=== PATIENT | male | born 1955 | race Two or more races ===

== ENCOUNTER 2022-01-31 08:48 | Inpatient (IN) | payer MEDICAID, OTHER ==
[2022-01-31] MEDS ORDERED: Sodium Chloride 0.9% 2.5 ML Syringe FLUSH PRN (09:44)
[2022-01-31] MEDS ORDERED: Sodium Chloride 0.9% 10 ML Syringe FLUSH PRN (09:44)
[2022-01-31] MEDS ORDERED: Pantoprazole 80 MG in Sodium Chloride 0.9% 10 ML IVPUSH ONE (09:45)
[2022-01-31 10:43] LABS: POTASSIUM,K 3.7 mmol/L (3.5-5.1)
[2022-01-31] MEDS ORDERED: Polyethylene Glycol 3350 Powder 17 GM Packet PO PRN (14:01)
[2022-01-31] MEDS ORDERED: Acetaminophen 325 MG Tab PO PRN (14:01)
[2022-01-31] MEDS ORDERED: Ondansetron 4 MG/2 ML SDV IVPUSH PRN (14:01)
[2022-01-31] MEDS ORDERED: Albuterol/Ipratropium 3.0-0.5 MG/3 ML Neb Soln NEB PRN (14:01)
[2022-01-31] MEDS ORDERED: Enoxaparin 40 MG/0.4 ML Syringe SUBCUT SCH (14:15)
[2022-01-31] MEDS: Lisinopril 10 MG Tab PO SCH (14:38)
[2022-01-31] MEDS: Pantoprazole 40 MG in Sodium Chloride 0.9% 10 ML IVPUSH SCH ×2 (15:57→18:44)
[2022-01-31] MEDS ORDERED: Labetalol 100 MG/20 ML MDV IVPUSH ONE (20:58)
[2022-02-01 06:34] LABS: CARBON DIOXIDE,CO2 23.5 mmol/L (21.0-32.0); POTASSIUM,K 3.8 mmol/L (3.5-5.1)
[2022-02-01] MEDS: Pantoprazole 40 MG in Sodium Chloride 0.9% 10 ML IVPUSH SCH ×2 (06:42→17:42)
[2022-02-01] MEDS: Lisinopril 10 MG Tab PO SCH (09:52)
[2022-02-01] MEDS: Labetalol 100 MG/20 ML MDV IVPUSH PRN ×2 (10:43→15:07)
[2022-02-01] MEDS: amLODIPine 5 MG Tab PO SCH (11:20)
[2022-02-01] MEDS: Tamsulosin 0.4 MG Cap.ER PO SCH (14:44)
[2022-02-01] MEDS ORDERED: FERUMOXYTOL IV ONE (21:00)
[2022-02-01] MEDS ORDERED: SODIUM CHLORIDE 0.9% IV ONE (21:00)
[2022-02-02] MEDS: Pantoprazole 40 MG in Sodium Chloride 0.9% 10 ML IVPUSH SCH ×2 (06:31→19:23)
[2022-02-02 07:13] LABS: CARBON DIOXIDE,CO2 23.7 mmol/L (21.0-32.0); POTASSIUM,K 3.6 mmol/L (3.5-5.1)
[2022-02-02] MEDS: amLODIPine 5 MG Tab PO SCH (08:36)
[2022-02-02] MEDS: Lisinopril 10 MG Tab PO SCH (08:37)
[2022-02-02] MEDS: Tamsulosin 0.4 MG Cap.ER PO SCH (08:37)
[2022-02-02] MEDS ORDERED: Polyethylene Glycol 3350 Powder 17 GM Packet PO ONE (11:55)
[2022-02-02] MEDS ORDERED: Bisacodyl 5 MG Tab PO ONE ×3 (11:57→18:00)
[2022-02-02] MEDS ORDERED: Polyethylene Glycol 3350 Powder 17 GM Packet PO PRN (17:00)
[2022-02-03] MEDS: Pantoprazole 40 MG in Sodium Chloride 0.9% 10 ML IVPUSH SCH ×2 (06:37→16:16)
[2022-02-03 07:19] LABS: CARBON DIOXIDE,CO2 23.4 mmol/L (21.0-32.0); POTASSIUM,K 3.5 mmol/L (3.5-5.1)
[2022-02-03] MEDS: Tamsulosin 0.4 MG Cap.ER PO SCH ×2 (09:43→16:16)
[2022-02-03] MEDS: amLODIPine 5 MG Tab PO SCH ×2 (09:44→16:15)
[2022-02-03] MEDS: Lisinopril 10 MG Tab PO SCH ×2 (09:46→16:15)
== END 2022-02-03 19:30 | disposition home or self-care (01) | DRG 811 ==
LOC: EDBD 08:48 → MW.ED 08:48 → MW.MS 11:17 → MERGE 11:17
PROVIDERS: ADMIT Student in an Organized Health Care Education/Training Program; ATTEND Internal Medicine
PROC: 30233N1 Transfusion of Nonautologous Red Blood Cells into Peripheral Vein, Percutaneous Approach (ICD-10-PCS; principal; 2022-01-31)
PROC: 0DB68ZX Excision of Stomach, Via Natural or Artificial Opening Endoscopic, Diagnostic (ICD-10-PCS; 2022-02-03)
PROC: 0DBE8ZX Excision of Large Intestine, Via Natural or Artificial Opening Endoscopic, Diagnostic (ICD-10-PCS; 2022-02-03)
DX: D64.9 Anemia, unspecified (principal); K29.71 Gastritis, unspecified, with bleeding; K57.91 Diverticulosis of intestine, part unspecified, without perforation or abscess with bleeding; K31.811 Angiodysplasia of stomach and duodenum with bleeding; I10 Essential (primary) hypertension; M06.9 Rheumatoid arthritis, unspecified; K21.9 Gastro-esophageal reflux disease without esophagitis; K63.5 Polyp of colon; Z20.822 Contact with and (suspected) exposure to COVID-19; Z79.899 Other long term (current) drug therapy; M19.90 Unspecified osteoarthritis, unspecified site
CPT/HCPCS: 00813; 36415; 36430; 51701; 51702; 80053; 81003; 83550; 83735; 84100; 84484; 85014; 85018; 85025; 85610; 86850; 86900; 86901; 86920; 93005; 96374; 99284-25; A9270-GY; C9113; J3490; P9016; Q0138; U0002

== ENCOUNTER 2022-10-02 08:40 | Emergency (ER) | payer MEDICAID ==
[2022-10-02] MEDS ORDERED: Aspirin 81 MG Tab.Chew PO STA (08:52)
[2022-10-02] MEDS: Nitroglycerin 0.4 MG Tab.SL SL PRN ×3 (08:57→09:10)
[2022-10-02] MEDS ORDERED: Heparin Sodium 5,000 Units/ML Vial IVPUSH ONE (09:10)
[2022-10-02] MEDS ORDERED: Sodium Chloride 0.9% 2.5 ML Syringe FLUSH PRN (09:10)
[2022-10-02] MEDS ORDERED: Sodium Chloride 0.9% 10 ML Syringe FLUSH PRN (09:10)
[2022-10-02] MEDS ORDERED: Sodium Chloride 0.9% 20 ML SDV IV PRN (09:10)
[2022-10-02] MEDS ORDERED: Nitroglycerin/D5W 25 MG/250 ML BOTTLE IV SCH (09:15)
[2022-10-02] MEDS ORDERED: Heparin Sodium/0.45% NaCl 500 ML IV SCH (09:30)
[2022-10-02 09:46] LABS: INR 0.97 (0.86-1.11); PTT,PARTIAL THROMBOPLSTIN TIME 25.3 SEC (23.9-30.7)
[2022-10-02 09:47] LABS: CALCIUM 8.7 mg/dL (8.5-10.1); CARBON DIOXIDE,CO2 28.5 mmol/L (21.0-32.0); CREATININE 1.2 mg/dL (0.8-1.3); EST CRCL DRUG DOSING (CG) 60.17 mL/min; MAGNESIUM 2.2 mg/dL (1.8-2.4); POTASSIUM,K 3.9 mmol/L (3.5-5.1)
[2022-10-02 09:56] LABS: BASOPHILS PERCENT AUTO 0.3 % (0.0-1.5); EOSINOPHILS ABSOLUTE AUTO 0.1 K/uL (0.0-0.7); EOSINOPHILS PERCENT AUTO 0.6 % (0.0-7.0); HEMATOCRIT 28.6 % (38.0-50.0); HEMOGLOBIN 8.8 g/dL (13.0-17.0); LYMPHOCYTES PERCENT AUTO 29.4 % (16.0-40.0); MEAN CORPUSCULAR HEMOGLOBIN 25.6 pg (27.0-32.0); MEAN CORPUSCULAR HGB CONC 30.8 g/dL (31.0-37.0); MEAN CORPUSCULAR VOLUME 83.1 fL (80.0-98.0); MONOCYTES PERCENT AUTO 9.9 % (0.0-15.0); NEUTROPHILS PERCENT AUTO 59.8 % (48.0-80.0); NRBC ABSOLUTE 0 K/uL; PLATELET COUNT,PLT 516 K/uL (150-400); RED BLOOD CELL COUNT 3.44 M/uL (4.50-5.90); WHITE BLOOD CELL COUNT,WBC 10.06 K/uL (4.0-11.0)
[2022-10-02] MEDS: Metoprolol Tartrate 5 MG/5 ML SDV IVPUSH SCH ×3 (10:49→11:05)
== END 2022-10-02 12:45 ==
LOC: MW.ED 08:40
DX: I24.9 Acute ischemic heart disease, unspecified (principal); I21.4 Non-ST elevation (NSTEMI) myocardial infarction; I16.1 Hypertensive emergency; D64.9 Anemia, unspecified; K64.9 Unspecified hemorrhoids; R94.31 Abnormal electrocardiogram [ECG] [EKG]; R79.89 Other specified abnormal findings of blood chemistry; I10 Essential (primary) hypertension; K21.9 Gastro-esophageal reflux disease without esophagitis; E11.9 Type 2 diabetes mellitus without complications; Z79.899 Other long term (current) drug therapy
CPT/HCPCS: 36415; 36430; 71045; 80048; 83735; 84484; 85025; 85610; 85730; 86850; 86900; 86901; 86920; 93005; 96365; 96366; 96368; 96375; 99285; A9270; J1644; J3490; P9016; 93010; 99291; 99292

== ENCOUNTER 2022-11-07 13:53 | Emergency (ER) | payer SELFPAY ==
[2022-11-07 14:10] LABS: APPEARANCE,URINE CLEAR; BILIRUBIN,URINE NEGATIVE (NEGATIVE); COLOR,URINE YELLOW; GLUCOSE,URINE NEGATIVE (NEGATIVE); KETONES,URINE TRACE mg/dL (NEGATIVE); LEUKOCYTE ESTERASE,URINE NEGATIVE (NEGATIVE); NITRITE,URINE NEGATIVE (NEGATIVE); OCCULT BLOOD,URINE NEGATIVE (NEGATIVE); PH,URINE 5.5 (5.0-8.0); PROTEIN,URINE NEGATIVE (NEGATIVE); UROBILINOGEN,URINE 0.2 EU/dL (<2.0)
[2022-11-07] MEDS ORDERED: Sodium Chloride 0.9% 1,000 ML IV ONE ×2 (14:39→17:05)
[2022-11-07] MEDS ORDERED: Pantoprazole 40 MG in Sodium Chloride 0.9% 10 ML IVPUSH ONE (14:40)
[2022-11-07 15:02] LABS: BASOPHILS PERCENT AUTO 0.1 % (0.0-1.5); EOSINOPHILS PERCENT AUTO 0.4 % (0.0-7.0); HEMATOCRIT 27.7 % (38.0-50.0); HEMOGLOBIN 8.6 g/dL (13.0-17.0); LYMPHOCYTES ABSOLUTE AUTO 1.6 K/uL (0.6-2.4); LYMPHOCYTES PERCENT AUTO 18.1 % (16.0-40.0); MEAN CORPUSCULAR HEMOGLOBIN 25.9 pg (27.0-32.0); MEAN CORPUSCULAR VOLUME 83.4 fL (80.0-98.0); MONOCYTES ABSOLUTE AUTO 0.9 K/uL (0.0-0.8); MONOCYTES PERCENT AUTO 10.5 % (0.0-15.0); NEUTROPHILS ABSOLUTE AUTO 6.3 K/uL (1.4-5.7); NEUTROPHILS PERCENT AUTO 70.9 % (48.0-80.0); NRBC ABSOLUTE 0 K/uL; PLATELET COUNT,PLT 195 K/uL (150-400); RED BLOOD CELL COUNT 3.32 M/uL (4.50-5.90); WHITE BLOOD CELL COUNT,WBC 8.91 K/uL (4.0-11.0)
[2022-11-07 15:34] LABS: A/G RATIO 1.1 (0.9-1.6); ALBUMIN 3.4 g/dL (3.4-5.0); BILIRUBIN TOTAL 0.3 mg/dL (0.2-1.0); CALCIUM 8.2 mg/dL (8.5-10.1); CARBON DIOXIDE,CO2 22.3 mmol/L (21.0-32.0); CREATININE 2.1 mg/dL (0.8-1.3); EST CRCL DRUG DOSING (CG) 29.76 mL/min; PROTEIN TOTAL,TP 6.5 g/dL (6.4-8.2)
== END 2022-11-07 22:15 ==
LOC: MW.ED 13:53
DX: K92.2 Gastrointestinal hemorrhage, unspecified (principal); I10 Essential (primary) hypertension; E11.9 Type 2 diabetes mellitus without complications; K21.9 Gastro-esophageal reflux disease without esophagitis; Z79.82 Long term (current) use of aspirin; Z79.899 Other long term (current) drug therapy
CPT/HCPCS: 36415; 74176; 80053; 81003; 83690; 85025; 85730; 86850; 86900; 86901; 93005; 96361; 96374; 99285; C9113; J3490; J7030; 93010

== ENCOUNTER 2022-12-31 14:38 | Emergency (ER) | payer SELFPAY ==
[2022-12-31] MEDS ORDERED: Sodium Chloride 0.9% 10 ML Syringe FLUSH PRN (15:46)
[2022-12-31] MEDS ORDERED: Sodium Chloride 0.9% 2.5 ML Syringe FLUSH PRN (15:46)
[2022-12-31 16:15] LABS: BASOPHILS ABSOLUTE AUTO 0.03 K/uL (0.00-0.20); BASOPHILS PERCENT AUTO 0.3 % (0.0-1.0); HEMATOCRIT 20.7 % (42.0-52.0); HEMOGLOBIN 6.2 g/dL (14.0-18.0); IMMATURE GRAN ABSOLUTE AUTO 0.02 K/uL (0.00-0.05); IMMATURE GRAN PERCENT AUTO 0.2 % (0.0-0.4); LYMPHOCYTES ABSOLUTE AUTO 0.73 K/uL (1.00-4.80); LYMPHOCYTES PERCENT AUTO 7.2 % (24.0-44.0); MEAN CORPUSCULAR HEMOGLOBIN 22.8 pg (28.0-32.0); MEAN CORPUSCULAR VOLUME 76.1 fL (83.0-99.0); MEAN PLATELET VOLUME 9.2 fL (9.4-12.4); MONOCYTES ABSOLUTE AUTO 0.49 K/uL (0.00-0.80); MONOCYTES PERCENT AUTO 4.8 % (0.0-8.0); NEUTROPHILS ABSOLUTE AUTO 8.89 K/uL (1.80-7.70); NEUTROPHILS PERCENT AUTO 87.5 % (41.0-71.0); PLATELET COUNT,PLT 432 K/uL (150-400); RED BLOOD CELL COUNT 2.72 M/uL (4.52-5.90); WHITE BLOOD CELL COUNT,WBC 10.16 K/uL (3.9-11.3)
[2022-12-31 16:30] LABS: INR 1.07 (0.86-1.11); PTT,PARTIAL THROMBOPLSTIN TIME 28.1 SEC (23.9-30.7)
[2022-12-31 16:55] LABS: ALBUMIN 3.7 g/dL (3.4-5.0); BILIRUBIN TOTAL 0.3 mg/dL (0.2-1.0); CARBON DIOXIDE,CO2 23.1 mmol/L (21.0-32.0); CREATININE 1.5 mg/dL (0.8-1.3); EST CRCL DRUG DOSING (CG) 41.11 mL/min; MAGNESIUM 2.4 mg/dL (1.8-2.4); POTASSIUM,K 4.4 mmol/L (3.5-5.1); PROTEIN TOTAL,TP 7.3 g/dL (6.4-8.2)
[2022-12-31 17:12] LABS: APPEARANCE,URINE CLEAR; BILIRUBIN,URINE NEGATIVE (NEGATIVE); COLOR,URINE YELLOW; GLUCOSE,URINE NEGATIVE (NEGATIVE); KETONES,URINE TRACE mg/dL (NEGATIVE); LEUKOCYTE ESTERASE,URINE NEGATIVE (NEGATIVE); NITRITE,URINE NEGATIVE (NEGATIVE); OCCULT BLOOD,URINE NEGATIVE (NEGATIVE); PROTEIN,URINE 100 mg/dL (NEGATIVE); UROBILINOGEN,URINE 0.2 EU/dL (<2.0)
[2022-12-31 17:20] LABS: EPITHELIAL CELLS,URINE RARE (NONE-FEW); RBC,URINE 0-1 (0-2/HPF); WBC,URINE 0-2 (0-5/HPF)
[2022-12-31 17:21] LABS: BACTERIA,URINE FEW (NEGATIVE); MUCUS,URINE OCCASIONAL (NONE-MOD)
== END 2023-01-01 00:20 | disposition home or self-care (01) ==
LOC: MW.ED 14:38
DX: D64.9 Anemia, unspecified (principal); K92.2 Gastrointestinal hemorrhage, unspecified; I10 Essential (primary) hypertension; E11.9 Type 2 diabetes mellitus without complications; K21.9 Gastro-esophageal reflux disease without esophagitis; E78.5 Hyperlipidemia, unspecified; Z79.899 Other long term (current) drug therapy; Z79.82 Long term (current) use of aspirin
CPT/HCPCS: 36415; 36430; 80053; 81001; 83690; 83735; 85025; 85610; 85730; 86850; 86900; 86901; 86920; 99284; J3490; P9016; 93010; 99283